=== PATIENT | male | born 1995 | race Caucasian/White ===

== ENCOUNTER 2018-01-08 14:32 | Emergency (ER) | payer BC ==
[2018-01-08 15:26] VITALS: BP 145/93
--- NOTE | 2018-01-08 16:32 | UC ---
UC General HPI - HPI Summary HPI Summary: 22 year old male presents with 1 week history of swollen lymph node to left axilla. States noted similar episode about 1 month prior that resolved on its own. Does associate with some fatigue, general malaise, and decreased appetite. He also notes a mildly pruritic rash to groin for past week. States started as single erythematous, scaly patch that has spread to a couple other areas of his groin. Denies fever, chills, CP, SOB, cough, sore throat, abdominal pain, N/V/D. - History of Current Complaint Chief Complaint: UCGeneralIllness Stated Complaint: SWOLLEN LYMPH NODE Time Seen by Provider: 01/08/18 16:18 Hx Obtained From: Patient Onset/Duration: Gradual Onset Onset Severity: Mild Current Severity: Mild Pain Intensity: 0 Associated Signs & Symptoms: Positive: Other - fatigue, malaise, decreased appetite - Allergy/Home Medications Allergies/Adverse Reactions: Allergies Allergy/AdvReac Type Severity Reaction Status Date / Time No Known Allergies Allergy Unverified 01/08/18 15:27 Home Medications: Home Medications NK [No Home Medications Reported] 01/08/18 [History Confirmed 01/08/18] PMH/Surg Hx/FS Hx/Imm Hx - Additional Past Medical History Additional PMH: No significant PMH Previously Healthy: Yes - Surgical History Surgical History: None - Family History Family History: Non-contributory - Social History Lives: With Family Alcohol Use: Rare Substance Use Type: Marijuana Substance Use Comment - Amount & Last Used: daily, 1 bowl/night Smoking Status (MU): Light Every Day Tobacco Smoker Type: eCigarettes Review of Systems Constitutional: Fatigue Skin: Rash Eyes: Negative ENT: Negative Respiratory: Negative Cardiovascular: Negative Gastrointestinal: Negative Genitourinary: Negative Is Patient Immunocompromised?: No All Other Systems Reviewed And Are Negative: Yes Physical Exam Triage Information Reviewed: Yes Appearance: Well-Appearing, No Pain Distress, Well-Nourished Vital Signs: Initial Vital Signs Temp 98.2 F 01/08/18 15:21 Pulse 86 01/08/18 15:21 Resp 16 01/08/18 15:21 BP 145/93 01/08/18 15:21 Pulse Ox 100 01/08/18 15:21 Vital Signs Reviewed: Yes Eyes: Positive: Conjunctiva Clear ENT: Positive: TMs normal, Uvula midline, Other - 2+ tonsils. Negative: Pharyngeal erythema, Nasal congestion, Nasal drainage, Tonsillar exudate Neck: Positive: Supple, Nontender, No Lymphadenopathy Respiratory: Positive: Lungs clear, Normal breath sounds, No respiratory distress Cardiovascular: Positive: RRR, No Murmur, Brisk Capillary Refill Abdomen Description: Positive: Nontender, No Organomegaly, Soft Bowel Sounds: Positive: Present Male Genital Exam: Positive: Normal Genitalia, Other - Shaved pubis with scaly, erythematous patches to the pubic region.. Negative: Inguinal Tenderness, Lesions Skin: Positive: rashes - see genital exam - Additional Comments Single soft, mobile, non-tender lymph node < 1 cm in diameter to left axilla. No other lymphadenopathy noted. Course/Dx - Course Course Of Treatment: Patient with isolated enlarged lymph node. He does report some fatigue and general malaise which would be consistent with mononucleosis however with lack of other symptoms this less likely. Rash to groin is consistent with tinea cruris. He has been instructed to use an OTC antifungal as directed and is to keep his appointment next week to establish care with his new primary care provider at [facility]. - Differential Dx - Multi-Symptom Provider Diagnoses: swollen lymph node; tinea cruris Discharge - Sign-Out/Discharge Documenting (check all that apply): Patient Departure - Discharge Plan Condition: Stable Disposition: HOME Patient Education Materials: Lymphadenopathy (ED), Jock Itch (ED) Referrals: Kristi Muñiz MD [Primary Care Provider] - 1 Week Additional Instructions: Per institutional requirements, I have reviewed the chart, however, I was not consulted specifically or made aware of this patient by the above midlevel provider. I did not personally evaluate, interact with , or disposition this patient. - Billing Disposition and Condition Condition: STABLE Disposition: Home
--- NOTE | 2018-01-09 07:44 | UC ---
- Progress Note Progress Note: neg mono no change ljj 01/09/2018 Discharge - Sign-Out/Discharge Documenting (check all that apply): Post-Discharge Follow Up - Discharge Plan Condition: Stable Disposition: HOME Patient Education Materials: Lymphadenopathy (ED), Jock Itch (ED) Referrals: Kristi Muñiz MD [Primary Care Provider] - 1 Week Additional Instructions: Per institutional requirements, I have reviewed the chart, however, I was not consulted specifically or made aware of this patient by the above midlevel provider. I did not personally evaluate, interact with , or disposition this patient. - Billing Disposition and Condition Condition: STABLE Disposition: Home
== END 2018-01-08 17:05 | disposition home or self-care (01) ==
LOC: UCEAST 14:32
DX: R59.1 Generalized enlarged lymph nodes (principal); B35.6 Tinea cruris; R53.83 Other fatigue; R53.81 Other malaise; F17.210 Nicotine dependence, cigarettes, uncomplicated
CPT/HCPCS: 36415; 86308; 86664; 86665; 99211; G0463

== ENCOUNTER 2018-01-12 15:09 | Emergency (ER) | payer BC ==
[2018-01-12 15:20] VITALS: BP 127/82
--- NOTE | 2018-01-12 18:15 | UC ---
General HPI - HPI Summary HPI Summary: 22 y/o male presents to the urgent care c/o dizzies and blurred vision for about 40 min at work around 1200N today. Pt reports he felt dizzy first and then felt his RT arm was shaking and sweaty w/ mild blurred vision. He had diarrhea x 2 days which resolved today. He went jugging this morning and then ate breakfast. He also states he quit smoking about 1 week ago. He is not sure if this is a withdrawal symptoms or he is developing DM since FMHX of DM type II. Now he feels better. However he was seen here on 01/08/2015 and Dx w/ Swollen lymph nodes and tinea which have resolved. Pt denies fever, SOB, URI, cough, chest pain, abdominal pain, N/V/D, DAI, photophobia, eye pain. - History of Current Complaint Chief Complaint: UCGeneralIllness Stated Complaint: BLURRY VISION AND DIZZINESS Time Seen by Provider: 01/12/18 17:52 Hx Obtained From: Patient Onset/Duration: Gradual Onset, Lasting Minutes Timing: Constant Onset Severity: Mild Current Severity: Mild Pain Intensity: 0 Associated Signs & Symptoms: Positive: Dizziness, Diarrhea - which resolved today, Other - blurred vision while using computer. Negative: Cough, Edema, Fever, Headache, Syncope, SOB, Vomiting - Allergy/Home Medications Allergies/Adverse Reactions: Allergies Allergy/AdvReac Type Severity Reaction Status Date / Time No Known Allergies Allergy Unverified 01/12/18 15:21 PMH/Surg Hx/FS Hx/Imm Hx Previously Healthy: Yes Other Endocrine History: Eczema - Surgical History Surgical History: None - Family History Known Family History: Positive: Diabetes - Social History Occupation: Employed Full-time Lives: With Family Alcohol Use: Rare Substance Use Type: Marijuana Substance Use Comment - Amount & Last Used: daily, 1 bowl/night Smoking Status (MU): Light Every Day Tobacco Smoker Type: eCigarettes Review of Systems Constitutional: Other - sweaty arms Skin: Negative Eyes: Blurred Vision ENT: Negative, Other - dizziness Respiratory: Negative Cardiovascular: Negative Gastrointestinal: Negative Genitourinary: Negative Motor: Negative Neurovascular: Negative Neurological: Negative Psychological: Negative Is Patient Immunocompromised?: No All Other Systems Reviewed And Are Negative: Yes Physical Exam - Summary Physical Exam Summary: Vital Signs Reviewed: Yes General: well developed, well nourished old male sitting in the examining table w/o any apparent respiratory distress. Eyes: Positive: Conjunctiva Clear - PERRLA, EOMI, fundi grossly normal ENT: Positive: Normal ENT inspection, Hearing grossly normal, Pharynx normal, TMs normal - B/L external ear canal clear, B/L TM's WNL, Other: - no maxillary or frontal sinus tenderness on percussion. Negative Anthony-hallpike maneuver. Negative: Tonsillar swelling, Tonsillar exudate Dental Exam: Normal Neck: Positive: Supple, Nontender, No Lymphadenopathy Respiratory: Positive: Chest non-tender, Lungs clear, Normal breath sounds Cardiovascular: Positive: RRR, No Murmur, Pulses Normal, Brisk Capillary Refill Abdomen Description: Positive: Nontender, No Organomegaly, Soft. Negative: CVA Tenderness (R), CVA Tenderness (L) Bowel Sounds: Positive: Present Musculoskeletal Exam: Normal Musculoskeletal: Positive: Strength Intact, ROM Intact, No Edema Neurological Exam: Normal Neurological: Positive: Alert, Muscle Tone Normal,Neuro: A&O x4, GCS 15, CN II- XII intact, no focal neuro deficits, normal [id number]-[id number] or [id number] testing. Romberg neg, no pronator drift, normal rapid alternating movements. Gait is normal, Psychological Exam: Normal Skin Exam: Normal Triage Information Reviewed: Yes Vital Signs: Initial Vital Signs Temp 98.3 F 01/12/18 15:16 Pulse 92 01/12/18 15:16 Resp 12 01/12/18 15:16 BP 127/82 01/12/18 15:16 Pulse Ox 99 01/12/18 15:16 Course/Dx - Course Course Of Treatment: 22 y/o male presents to the urgent care c/o dizzies and blurred vision for about 40 min at work around 1200N today. Pt reports he felt dizzy first and then felt his RT arm was shaking and sweaty w/ mild blurred vision. He had diarrhea x 2 days which resolved today. He went jugging this morning and then ate breakfast. He also states he quit smoking about 1 week ago. He is not sure if this is a withdrawal symptoms or he is developing DM since FMHX of DM type II. Now he feels better. However he was seen here on 2014 and Dx w/ Swollen lymph nodes and tinea which have resolved. Pt denies fever, SOB, URI, cough, chest pain, abdominal pain, N/V/D, DAI, photophobia, eye pain. Hx obtained. PE: WNL.Negative Williston-hallpike maneuver. FSG ordered: 87mg/ dl. Visual acuity ordered: RT/LF eye 20/40, Both 20/20. Pt may be straining his vision and needs probalby glasses. Pt given referral w/ Opthalmologist Dr Harrington for further maangement. Pt Rx Meclizine PO to alleviate dizziness fi it continued. Advised if not improvement to f/u with his PCP for blood work and further management.D/C instructions explained. Pt understood and agreed w/ plan of care and left clinic ambulating and hemodynamically stable. A&OX3 - Differential Dx - Multi-Symptom Differential Diagnoses: Other - Vertigo, dizziness, nausea and vomiting, DM, Provider Diagnoses: 1- Dizziness. 1- Decrease vision Discharge - Sign-Out/Discharge Documenting (check all that apply): Patient Departure - D/C home - Discharge Plan Condition: Stable Disposition: HOME Prescriptions: Meclizine TAB* [Antivert 12.5 TAB*] 12.5 mg PO TID #15 tab Patient Education Materials: Dizziness (ED) Referrals: Kristi Muñiz MD [Primary Care Provider] - 3 Days Additional Instructions: 1- Take Meclizine PO to alleviate dizziness. Increase fluid intake, rest, eat well and avoid strenuous exercise. 2- Your FSmg/dl . Please f/u w/ your PCP in 3 days for blood work and further management if dizziness returns. 3- If dizziness continues severely despite medication and you develop DAI, nausea and vomiting s please go Immediately to the ER for further evaluation and treatment. - Billing Disposition and Condition Condition: STABLE Disposition: Home
== END 2018-01-12 19:11 | disposition home or self-care (01) ==
LOC: UCEAST 15:09
DX: R42 Dizziness and giddiness (principal); H54.7 Unspecified visual loss; F17.210 Nicotine dependence, cigarettes, uncomplicated
CPT/HCPCS: 99212; G0463

== ENCOUNTER 2018-01-23 10:58 | Emergency (ER) | payer BC ==
[2018-01-23] MEDS ORDERED: NS 0.9% 1000 ML* 2,000 ML IV ONE (12:22)
--- NOTE | 2018-01-23 12:27 | ED ---
Abdominal Pain/Male - HPI Summary HPI Summary: This is [facility] documenting for attending Vignesh Ramsay MD. Pt is a 22 y/o M c/o intermittent abd pain onset ~1 week ago. Pain is located in the JUAQUIN abdominal region described as cramping, rated a 6/10 at its worst. Assoc Sx: diarrhea (yellow), decreased PO intake, fatigue. Denies: melena, SOB, vomiting, fever, chills, dizziness, DAI. He reports that pain is worsened by PO intake. He also reports losing 5-10 lbs this week. I, Dr. Ramsay, personally performed the services described in this documentation as scribed in my presence and it is both accurate and complete. - History of Current Complaint Chief Complaint: EDAbdPain Stated Complaint: ABD CRAMPING,WEIGHT LOSS Time Seen by Provider: 01/23/18 12:13 Hx Obtained From: Patient Onset/Duration: Gradual Onset, Lasting Weeks - 1 week, Still Present Timing: Intermittent Severity Currently: Mild Pain Intensity: 3 Pain Scale Used: 0-10 Numeric Location: Epigastric Aggravating Factor(s): Other: - POS: PO intake Alleviating Factor(s): Nothing - Allergies/Home Medications Allergies/Adverse Reactions: Allergies Allergy/AdvReac Type Severity Reaction Status Date / Time No Known Allergies Allergy Unverified 01/23/18 11:18 Home Medications: Home Medications NK [No Home Medications Reported] 01/23/18 [History Confirmed 01/23/18] PMH/Surg Hx/FS Hx/Imm Hx Endocrine/Hematology History: Denies: Hx Diabetes Cardiovascular History: Denies: Hx Coronary Artery Disease, Hx Hypertension Infectious Disease History: No Infectious Disease History: Denies: Traveled Outside the [place] in Last 30 Days - Family History Known Family History: Positive: Diabetes Negative: Cardiac Disease, Hypertension Family History: Non-contributory - Social History Occupation: Employed Part-time Lives: With Family Alcohol Use: Rare Substance Use Type: Reports: Marijuana Substance Use Comment - Amount & Last Used: daily, 1 bowl/night Smoking Status (MU): Light Every Day Tobacco Smoker Type: eCigarettes Review of Systems Negative: Fever, Chills, Fatigue, Skin Diaphoresis Negative: Photophobia, Blurred Vision, Diplopia, Drainage, Erythema Negative: Epistaxis, Dental Pain, Sore Throat, Ear Ache, Nasal Discharge Negative: Palpitations, Chest Pain Negative: Shortness Of Breath, Cough Positive: Abdominal Pain, Diarrhea. Negative: Vomiting, Nausea Negative: burning, dysuria, discharge, frequency, flank pain, hematuria, incontinence, pain, urgency Negative: Arthralgia, Myalgia, Decreased ROM, Edema Negative: Rash, Bruising Negative: Headache, Weakness, Paresthesia, Numbness, Syncope, Slurred Speech Negative: Anxious, Depressed All Other Systems Reviewed And Are Negative: Yes Physical Exam - Summary Physical Exam Summary: Constitutional: Well-developed, Well-nourished, Alert. (-) Distressed Skin: Warm, Dry HENT: Normocephalic; Atraumatic Eyes: Conjunctiva normal Neck: Musculoskeletal ROM normal neck. (-) JVD, (-) Stridor, (-) Tracheal deviation Cardio: Rhythm regular, rate normal, Heart sounds normal; Intact distal pulses; The pedal pulses are 2+ and symmetric. Radial pulses are 2+ and symmetric. (-) Murmur Pulmonary/Chest wall: Effort normal. (-) Respiratory distress, (-) Wheezes, (-) Rales Abd: Soft, (-) epigastric tenderness, (-) Distension, (-) Guarding, (-) Rebound Musculoskeletal: (-) Edema Lymph: (-) Cervical adenopathy Neuro: Alert, Oriented x3 Psych: Mood and affect Normal Triage Information Reviewed: Yes Vital Signs On Initial Exam: Initial Vitals Temp Pulse Resp BP Pulse Ox 98.2 F 65 16 133/74 94 01/23/18 11:12 01/23/18 11:12 01/23/18 11:12 01/23/18 11:12 01/23/18 11:12 Vital Signs Reviewed: Yes Diagnostics - Vital Signs Vital Signs Temp Pulse Resp BP Pulse Ox 01/23/18 11:12 98.2 F 65 16 133/74 94 - Laboratory Result Diagrams: 01/23/18 12:28 01/23/18 12:28 Lab Statement: Any lab studies that have been ordered have been reviewed, and results considered in the medical decision making process. Abdominal Pain Fem Course/Dx - Course Course Of Treatment: Pt was seen by provider. Labs were ordered and results were great. Inflamation edgar (-), abd tenderness (-). Pt is unable to pass stool at the time. Provider decided to feed pt. If pt is able to pass stool following eating then he will be D/C home with a spec. cup. F/u with PCP or [facility] within 2 days. - Diagnoses Provider Diagnoses: Diarrhea Discharge - Sign-Out/Discharge Documenting (check all that apply): Patient Departure - Discharge Plan Condition: Stable Disposition: HOME Patient Education Materials: Irritable Bowel Syndrome (ED) Referrals: [facility] REFERRAL [Outside] - 2 Days Raffi Renae DO [Primary Care Provider] - 2 Days Additional Instructions: RETURN TO THE EMERGENCY DEPARTMENT FOR CHANGING OR WORSENING SYMPTOMS
[2018-01-23 12:43] LABS: Hematocrit 43 % (42-52); Hemoglobin 14.3 g/dl (14.0-18.0); Mean Corpuscular HGB Conc 33 g/dl (31-36); Mean Corpuscular Hemoglobin 24 pg (27-31); Mean Corpuscular Volume 73 fL (80-94); Mean Platelet Volume 7.9 um3 (7.4-10.4); Platelet Count 256 10^3/ul (150-450); Red Blood Count 5.88 10^6/ul (4.00-5.40); Red Cell Distribution Width 14 % (10.5-15); White Blood Count 5.6 10^3/ul (3.5-10.8)
[2018-01-23 13:02] LABS: EGFR Non-African American 105.2 (>60)
[2018-01-23 13:06] LABS: ABS Basophils 0 10^3/ul (0-0.2); ABS Eosinophils 0 10^3/ul (0-0.6); ABS Monocytes 0.5 10^3/ul (0-0.8); ABS Nucleated RBC 0 10^3/ul; Eosinophil % 0.5 % (0-6); Lymphocyte % 17.5 % (25-47); Nucleated Red Blood Cells % 0.2
[2018-01-23 14:37] LABS: Urine Appearance Clear; Urine Blood Negative (Negative); Urine Color Yellow; Urine Ketones 1+ (Negative); Urine Protein Negative (Negative); Urine Specific Gravity 1.013 (1.010-1.030); Urine Urobilinogen Negative (Negative)
[2018-01-23 14:42] VITALS: BP 133/76
== END 2018-01-23 14:41 | disposition home or self-care (01) ==
LOC: ED 10:58
DX: R19.7 Diarrhea, unspecified (principal); R53.83 Other fatigue; R10.12 Left upper quadrant pain; F17.210 Nicotine dependence, cigarettes, uncomplicated
CPT/HCPCS: 36415; 80053; 81003; 82270; 83605; 83690; 85025; 86140; 87045; 87046; 87077; 87493; 87899; 96360; 96361; 99283